=== PATIENT | female | born 1990 ===

== ENCOUNTER 2021-02-17 03:31 | Emergency (ER) | payer MEDICAID ==
[~2021-02-17] VITALS: Ht 170.2 cm; Wt 117.9 kg
[2021-02-17 08:10] VITALS: BP 124/89
== END 2021-02-17 09:18 | disposition home or self-care (01) ==
LOC: ER 03:31
DX: S93.402A Sprain of unspecified ligament of left ankle, initial encounter (principal); M72.2 Plantar fascial fibromatosis; X58.XXXA Exposure to other specified factors, initial encounter; Y93.89 Activity, other specified; Y92.89 Other specified places as the place of occurrence of the external cause; Y99.8 Other external cause status
CPT/HCPCS: 73610